=== PATIENT | male | born 1960 | race Caucasian/White ===

== ENCOUNTER 2018-09-13 21:44 | Inpatient (IN) | payer OTHER ==
[2018-09-13 23:35] LABS: ADD MAN DIFF? NO
[2018-09-13 23:36] LABS: WHITE BLOOD COUNT 6.2 10^3/ul (4.8-10.8)
[2018-09-13 23:36] LABS: BASOPHILS % 0.5 % (0.0-2.0); EOSINOPHILS # 0.1 10^3/ul (0.0-0.5); EOSINOPHILS % 1.6 % (0.0-7.0); HEMATOCRIT 45.5 % (42.0-52.0); HEMOGLOBIN 15.3 g/dl (14.0-18.0); LYMPHOCYTES # 1.7 10^3/ul (0.8-2.9); LYMPHOCYTES % 26.7 % (15.0-51.0); MEAN CORPUSCULAR HEMOGLOBIN 28.3 pg (29.0-33.0); MEAN CORPUSCULAR HGB CONC 33.6 g/dl (32.0-37.0); MEAN CORPUSCULAR VOLUME 84.3 fl (82.0-101.0); MEAN PLATELET VOLUME 8.7 fl (7.4-10.4); MONOCYTE # 0.6 10^3/ul (0.3-0.9); MONOCYTES % 10.2 % (0.0-11.0); NEUTROPHIL # 3.8 10^3/ul (1.6-7.5); NEUTROPHILS % 60.8 % (39.0-77.0); PLATELET COUNT 265 10^3/UL (140-415); RED CELL DISTRIBUTION WIDTH 12.4 % (11.5-14.5)
[2018-09-13 23:45] LABS: ALANINE AMINOTRANSFERASE 37 IU/L (13-69); ALBUMIN 4.5 g/dl (3.3-4.9); ALBUMIN/GLOBULIN RATIO 1.66; ALKALINE PHOSPHATASE 52 IU/L (42-121); ANION GAP 9 (5-13); ASPARTATE AMINO TRANSFERASE 33 IU/L (15-46); BILIRUBIN,INDIRECT 0.6 mg/dl (0-1.1); BILIRUBIN,TOTAL 0.6 mg/dl (0.2-1.3); BLOOD UREA NITROGEN 21 mg/dl (7-20); CALCIUM 9.4 mg/dl (8.4-10.2); CARBON DIOXIDE 28 mmol/L (21-31); CHLORIDE 100 mmol/L (97-110); CREATININE 0.95 mg/dl (0.61-1.24); Estimated GFR > 60 mL/min (>60); GLUCOSE 115 mg/dl (70-220); LIPASE 131 U/L (23-300); SODIUM 137 mmol/L (135-144); TOTAL PROTEIN 7.2 g/dl (6.1-8.1)
[2018-09-13 23:56] LABS: TROPONIN-I < 0.012 ng/ml (0.000-0.120)
[2018-09-14] MEDS: ASPIRIN 81 MG TAB PO (00:16)
[2018-09-14] MEDS: NITROGLYCERIN (SL) 0.4 MG TAB SL (00:16)
[2018-09-14 00:56] LABS: CREATINE KINASE 162 IU/L (23-200)
[2018-09-14] MEDS ORDERED: morphine 2 MG INJ IV (01:00)
[2018-09-14] MEDS ORDERED: DOCUSATE SODIUM 100 MG CAP PO (01:00)
[2018-09-14] MEDS ORDERED: LORAZEPAM 0.5 MG TAB PO (01:00)
[2018-09-14] MEDS ORDERED: ACETAMINOPHEN 325 MG TAB PO (01:00)
[2018-09-14] MEDS ORDERED: BISACODYL (EC) 5 MG TAB PO (01:00)
[2018-09-14] MEDS ORDERED: ONDANSETRON 4 MG INJ IV (01:00)
[2018-09-14] MEDS ORDERED: NACL 0.9% 3 ML SYG IV (01:00)
[2018-09-14 01:09] LABS: CK INDEX 1.4; CK-MB 2.29 ng/ml (0.0-2.4); TROPONIN-I < 0.012 ng/ml (0.000-0.120)
[2018-09-14] MEDS: SOD CHLORIDE 0.9% 1,000 ML IV ×2 (02:05→13:07)
[2018-09-14] MEDS: LORAZEPAM 0.5 MG TAB PO (02:06)
[2018-09-14] MEDS: PANTOPRAZOLE (EC) 40 MG TAB PO ×2 (02:06→04:57)
[2018-09-14] MEDS: ONDANSETRON 4 MG INJ IV (02:06)
[2018-09-14] MEDS: LIDOCAINE/MYLANTA 40 ML BTL PO (02:23)
[2018-09-14 06:05] LABS: CREATINE KINASE 129 IU/L (23-200)
[2018-09-14 06:18] LABS: CK INDEX 1.3; CK-MB 1.69 ng/ml (0.0-2.4); TROPONIN-I < 0.012 ng/ml (0.000-0.120)
[2018-09-14] MEDS: CLOPIDOGREL 75 MG TAB PO (08:20)
[2018-09-14] MEDS: ASPIRIN (EC) 81 MG TAB PO (08:20)
[2018-09-14] MEDS: METOPROLOL (XL) 25 MG TAB PO (08:20)
[2018-09-14 12:16] LABS: TROPONIN-I < 0.012 ng/ml (0.000-0.120)
[2018-09-14] MEDS: SUCRALFATE (100 MG/ML) 10ML CUP PO (13:11)
[2018-09-14] MEDS ORDERED: PANTOPRAZOLE (EC) 40 MG TAB PO (21:00)
[2018-09-14] MEDS ORDERED: ATORVASTATIN 10 MG TAB PO (21:00)
== END 2018-09-14 14:45 | disposition home or self-care (01) | DRG 392 ==
LOC: 6WM 09-14 00:22 → E/R 21:44
DX: K29.70 Gastritis, unspecified, without bleeding (principal); F41.9 Anxiety disorder, unspecified; I25.10 Atherosclerotic heart disease of native coronary artery without angina pectoris; Z95.5 Presence of coronary angioplasty implant and graft; Z87.891 Personal history of nicotine dependence; K21.9 Gastro-esophageal reflux disease without esophagitis
CPT/HCPCS: 36415; 71045; 80053; 82550; 82553; 83690; 84484; 85025; 93005; 99285-25

== ENCOUNTER 2019-05-04 19:59 | Emergency (ER) | payer OTHER ==
[2019-05-04] MEDS: DIPHTH/TET/ACEL PERTUSS (ADULT) 0.5 ML VIAL IM* (21:06)
== END 2019-05-04 22:30 | disposition home or self-care (01) ==
LOC: FTE 19:59
DX: S81.852A Open bite, left lower leg, initial encounter (principal); I10 Essential (primary) hypertension; I25.10 Atherosclerotic heart disease of native coronary artery without angina pectoris; W54.0XXA Bitten by dog, initial encounter; Y92.9 Unspecified place or not applicable; Z98.61 Coronary angioplasty status; Z79.01 Long term (current) use of anticoagulants; Z79.82 Long term (current) use of aspirin; Z23 Encounter for immunization
CPT/HCPCS: 90471; 90715; 99283-25